=== PATIENT | female | born 1990 | race Hispanic/Latino ===

== ENCOUNTER → 2023-01-10 10:30 | Outpatient (CLI) | payer OTHER, MEDICAID, SELFPAY ==
[2023-01-12 17:25] LABS: Candida species Negative (Negative); Gardnerella vaginalis Negative (Negative); Trichomoas vaginalis Negative (Negative)
== END ==
PROVIDERS: PCP Family Medicine; Visit Provider Family Medicine
DX: R39.9 Unspecified symptoms and signs involving the genitourinary system (principal)
CPT/HCPCS: 87480; 87510; 87660

== ENCOUNTER → 2024-05-19 11:51 | Outpatient (CLI) | payer OTHER, SELFPAY | PROVIDERS: PCP Family Medicine; Referring Provider Family Medicine; Visit Provider Family Medicine | DX: N89.8 Other specified noninflammatory disorders of vagina (principal) | CPT/HCPCS: 87491; 87591; 87661; 87798; 87801 ==

== ENCOUNTER → 2024-06-16 11:33 | Outpatient (CLI) | payer OTHER, SELFPAY ==
[2024-06-16 20:11] LABS: HEMOLYSIS < 15 (0-50); Iron 135 ug/dL (37-170)
[2024-06-16 20:21] LABS: Add Manual Diff / Slide Review NO; Basophils Absolute Auto 0 /uL (0-100); Basophils Percent Auto 0.6 % (0-2); Eosinophils Absolute Auto 100 /uL (0-450); Eosinophils Percent Auto 1.4 % (2-4); Hematocrit 40.4 % (36-46); Hemoglobin 13.7 g/dL (12.0-16.0); Lymphocytes Absolute Auto 2100 /uL (1100-4500); Lymphocytes Percent Auto 34.4 % (25-40); Mean Corpuscular Hemoglobin 29.4 PG (26-34); Mean Corpuscular Volume 86.4 fL (80-100); Monocytes Absolute Auto 500 /uL (0-900); Monocytes Percent Auto 8.2 % (3-14); Neutrophils Absolute Auto 3400 /uL (1500-7000); Neutrophils Percent Auto 55.4 % (50-75); Platelet Count 254 X10^3/uL (150-400); Red Blood Cell Count 4.67 X10^6/uL (4.0-5.2); Red Cell Distribution Width 13.2 % (11.6-14.8); White Blood Cell Count 6.2 X10^3/uL (4.5-11.0)
[2024-06-16 20:23] LABS: Percent Iron Saturation 49 % (15-50); Total Iron Binding Capacity 278 ug/dL (265-497); Transferrin 257 mg/dL (206-381)
[2024-06-16 20:31] LABS: Vitamin D 25 Hydroxy (D3) 29.8 ng/mL (30.0-100.0)
[2024-06-16 20:43] LABS: Thyroid Stimulating Hormone 0.822 uIU/mL (0.47-4.68)
[2024-06-16 20:50] LABS: Ferritin 15 ng/mL (6-137)
== END ==
PROVIDERS: PCP Family Medicine; Visit Provider Family Medicine
DX: D64.9 Anemia, unspecified (principal); F41.9 Anxiety disorder, unspecified; K62.5 Hemorrhage of anus and rectum
CPT/HCPCS: 82306; 82728; 83540; 83550; 84443; 85025